=== PATIENT | female | born 1985 | race Caucasian/White ===

== ENCOUNTER 2017-02-26 17:50 | Emergency (ER) | payer MEDICAID ==
[2017-02-26] MEDS ORDERED: NO HOME MEDICATION XX (19:40)
== END 2017-02-26 21:45 ==
LOC: EDMED 17:50
DX: O20.0 Threatened abortion (principal); O99.281 Endocrine, nutritional and metabolic diseases complicating pregnancy, first trimester; E03.9 Hypothyroidism, unspecified; Z3A.01 Less than 8 weeks gestation of pregnancy; Z87.891 Personal history of nicotine dependence